=== PATIENT | female | born 1940 | race Caucasian/White ===

== ENCOUNTER → 2016-03-30 | Outpatient (CLI) | payer MEDICARE ==
[~2016-03-30] MED LIST: ALPH400C2 PO; AMBI10TA PO; BIOT1SUB SL; BIOT2500 PO; CENTCHW4 CHEW; CENTTAB PO; FOSA70TA PO; GLUC15002 PO; HYDR-3583 PO; HYDR10TA16 PO; LEVO100T63 PO; LEVO88TA21 PO; MULT1TAB; OPTI400C PO; PRIL20CA PO; PRIL20CA9 PO; RANI150T PO; TAMO20TA4 PO; TAMO20TA6 PO; VITA10003 PO; VITA200017 PO; VITA200C3 PO; ZOLP10TA3 PO
[2016-03-30 13:13] LABS: HEMATOCRIT 40.5 % (35.0-46.0); MEAN CELL VOLUME 95.2 FL (80.0-100.0); MEAN CORPUSCULAR HEMOGLOBIN 31.7 PG (27.0-34.0); MEAN CORPUSCULAR HGB CONC 33.3 % (32.0-36.0); PLATELET COUNT 186 TH/MM3 (150-450); RED BLOOD COUNT 4.26 MIL/MM3 (4.00-5.30); REVIEW FLAG FINAL; WHITE BLOOD COUNT 5.4 TH/MM3 (4.0-11.0)
[2016-03-30 13:32] LABS: ANION GAP 3 MEQ/L (5-15); AST (GOT) 24 U/L (15-37); BICARBONATE 30.6 MEQ/L (21.0-32.0); BLOOD UREA NITROGEN 19 MG/DL (7-18); CHLORIDE 109 MEQ/L (98-107); GLOMERULAR FILTRATION RATE 68 ML/MIN (>89); GLUCOSE,FASTING 95 MG/DL (74-99); POTASSIUM 4.7 MEQ/L (3.5-5.1); SODIUM (NA) 143 MEQ/L (136-145)
[2016-03-30 13:45] LABS: ALKALINE PHOSPHATASE 60 U/L (45-117); ALT (GPT) 28 U/L (10-53); TOTAL BILIRUBIN ADULT 0.5 MG/DL (0.2-1.0)
== END ==
LOC: PLAB 08:32
PROVIDERS: ATTEND Family Medicine
DX: E03.9 Hypothyroidism, unspecified (principal); M81.0 Age-related osteoporosis without current pathological fracture; N18.2 Chronic kidney disease, stage 2 (mild)
CPT/HCPCS: 36415; 80053; 82306; 84443; 85027

== ENCOUNTER → 2016-08-11 | Outpatient (CLI) | payer MEDICARE ==
[~2016-08-11] MED LIST changes: -BIOT1SUB SL; -BIOT2500 PO; -FOSA70TA PO; -HYDR10TA16 PO; -LEVO88TA21 PO; -MULT1TAB; -PRIL20CA PO; -PRIL20CA9 PO; -TAMO20TA4 PO; -VITA10003 PO; -VITA200017 PO; -ZOLP10TA3 PO
== END ==
LOC: PLAB 07:20
PROVIDERS: ATTEND Urology
DX: N30.20 Other chronic cystitis without hematuria (principal); B96.20 Unspecified Escherichia coli [E. coli] as the cause of diseases classified elsewhere
CPT/HCPCS: 87077; 87086; 87186